=== PATIENT | male | born 1965 | race Asian ===

== ENCOUNTER 2024-10-02 06:10 | Emergency (ER) | payer OTHER ==
[2024-10-02 06:22] VITALS: BP_SYST 159; BP_DIAS 60; BP_DIAS 90; PULSE 119; RESP 16; TEMP 98.6; TEMP 98.7; O2SAT 98
[2024-10-02 07:55] VITALS: BP 156/76; PULSE 99; RESP 16; TEMP 98.7; O2SAT 98
== END 2024-10-02 07:56 | disposition home or self-care (01) ==
LOC: ER 06:10 → EDBD 06:10 → ER 07:56
DX: S16.1XXA Strain of muscle, fascia and tendon at neck level, initial encounter (principal); E11.9 Type 2 diabetes mellitus without complications; V89.2XXA Person injured in unspecified motor-vehicle accident, traffic, initial encounter; Y93.89 Activity, other specified; Y92.488 Other paved roadways as the place of occurrence of the external cause; Y99.8 Other external cause status
CPT/HCPCS: 70450; 72125; 99284